=== PATIENT | female | born 1985 | race Caucasian/White ===

== ENCOUNTER 2019-10-07 22:14 | Inpatient (IN) | payer SELFPAY ==
[~2019-10-07] VITALS: Ht 167.6 cm; Wt 76.7 kg
[2019-10-07 22:30] VITALS: BP_SYST 119
[2019-10-08] MEDS ORDERED: NACL 0.9% 1,000 ML IV ONE (00:15)
[2019-10-08] MEDS ORDERED: ASPIRIN 325 MG TABLET PO ONE (00:15)
[2019-10-08] MEDS ORDERED: NITROGLYCERIN 0.4 MG TAB.SUBL SL ONE (00:15)
[2019-10-08 00:21] LABS: BILIRUBIN,URINE NEGATIVE (NEGATIVE); BLOOD, URINE NEGATIVE (NEGATIVE); CLARITY/URINE CLEAR (CLEAR); COLOR,URINE YELLOW (YELLOW); GLUCOSE,URINE NEGATIVE (NEGATIVE); KETONES,URINE NEGATIVE (NEGATIVE); LEUKOCYTE ESTERASE ,URINE 2+ (NEGATIVE); NITRITE, URINE NEGATIVE (NEGATIVE); PROTEIN URINE NEGATIVE (NEGATIVE); UROBILINOGEN,URINE 0.2 (0.2-1.0)
[2019-10-08 00:25] LABS: RBC,URINE 0-3 /HPF (0-3)
[2019-10-08 00:26] LABS: BACTERIA,URINE MODERATE /HPF (None Seen)
[2019-10-08] MEDS ORDERED: cefTRIAXone 1 GM in D5W 50 ML IV ONE (01:15)
[2019-10-08] MEDS ORDERED: MORPHINE 2 MG/ML INJ. SYRINGE IVP ONE (01:15)
[2019-10-08 01:25] LABS: BASOPHILS % (AUTO) 0.2 % (0.0-2.0); CALCIUM 8.6 mg/dL (8.4-11.0); CREATININE 0.78 mg/dL (0.55-1.30); EOSINOPHILS % (AUTO) 0.1 % (0.0-4.0); HEMATOCRIT 36.9 % (36-48); HEMOGLOBIN 12.9 g/dL (12.0-16.0); LYMPHOCYTES # (AUTO) 1.9 K/uL (1.0-5.5); LYMPHOCYTES % (AUTO) 8.8 % (20.5-51.5); MEAN CORPUSCULAR HEMOGLOBIN 33 pg (27-31); MEAN CORPUSCULAR HGB CONC 35 % (32-36); MEAN CORPUSCULAR VOLUME 95 fL (79.0-98.0); MONOCYTES # (AUTO) 1.2 K/uL (0.0-1.0); MONOCYTES % (AUTO) 5.6 % (1.7-9.3); NEUTROPHILS # (AUTO) 18.8 K/uL (1.8-7.7); NEUTROPHILS % (AUTO) 85.3 % (40.0-70.0); PLATELET COUNT (AUTO) 286 K/uL (130-430); POTASSIUM 3.6 mmol/L (3.5-5.1); PROTHROMBIN TIME 9.9 SECS (9.5-12.5); RED CELL DISTRIBUTION WIDTH 12.8 % (9.0-15.0)
[2019-10-08 01:29] LABS: ALBUMIN 3.4 g/dL (3.4-4.8); TOTAL BILIRUBIN 0.4 mg/dL (0.0-1.0)
[2019-10-08] MEDS ORDERED: cefTRIAXone 1 GM VIAL ONE (01:29)
[2019-10-08] MEDS ORDERED: ONDANSETRON HCL 4 MG/2 ML VIAL IVP PRN (04:00)
[2019-10-08] MEDS ORDERED: ACETAMINOPHEN 325 MG TABLET PO PRN (04:00)
[2019-10-08] MEDS ORDERED: KETOROLAC TROMETHAMINE 15 MG VIAL IVP PRN (04:15)
[2019-10-08 05:00] VITALS: BP_SYST 124
[2019-10-08 05:10] LABS: BARBITURATE, URINE NEGATIVE (NEG <=200); BENZODIAZEPINE, URINE NEGATIVE (NEG <=150); METHAMPHETAMINES SCREEN,URINE NEGATIVE (NEG <=500); OPIATE, URINE NEGATIVE (NEG <=100); PHENCYCLIDINE SCREEN,URINE NEGATIVE (NEG <=25); UR TRICYCLIC ANTIDEPRESSANTS NEGATIVE (NEG <=300); URINE AMPHETAMINE NEGATIVE (NEG <=500); URINE METHADONE NEGATIVE (NEG <=200); URINE OXYCODONE SCREEN NEGATIVE (NEG <=100); URINE PROPOXYPHENE SCREEN NEGATIVE (NEG <=300)
[2019-10-08 05:11] LABS: CANNABINOID, URINE POSITIVE (NEG <=50); COCAINE, URINE POSITIVE (NEG <=150)
[2019-10-08] MEDS ORDERED: FLU VACC QS2019-20 36MOS UP/PF 60 MCG/0.5 ML SYRINGE I.M. PRN (07:00)
[2019-10-08 07:45] VITALS: BP_SYST 131
[2019-10-08] MEDS: cefTRIAXone 1 GM in D5W 50 ML IV SCH (11:48)
[2019-10-08 11:53] VITALS: BP_SYST 138
[2019-10-08] MEDS: NACL 0.9% 1,000 ML IV SCH (13:16)
[2019-10-08] MEDS: metroNIDAZOLE 500 mg/NS 100 ML IV SCH ×2 (13:16→21:50)
[2019-10-08 16:01] VITALS: BP_SYST 143
[2019-10-08 20:00] VITALS: BP_SYST 133
[2019-10-09] VITALS: BP_SYST 125
[2019-10-09] MEDS: NACL 0.9% 1,000 ML IV SCH ×3 (00:23→08:50)
[2019-10-09] MEDS: metroNIDAZOLE 500 mg/NS 100 ML IV SCH (05:49)
[2019-10-09 06:29] LABS: BASOPHILS % (AUTO) 0.4 % (0.0-2.0); EOSINOPHILS # (AUTO) 0.1 K/uL (0.0-0.4); EOSINOPHILS % (AUTO) 1.4 % (0.0-4.0); HEMATOCRIT 33.1 % (36-48); HEMOGLOBIN 11.5 g/dL (12.0-16.0); LYMPHOCYTES # (AUTO) 2.1 K/uL (1.0-5.5); LYMPHOCYTES % (AUTO) 23.7 % (20.5-51.5); MEAN CORPUSCULAR HEMOGLOBIN 33 pg (27-31); MEAN CORPUSCULAR HGB CONC 35 % (32-36); MEAN CORPUSCULAR VOLUME 95 fL (79.0-98.0); MONOCYTES # (AUTO) 0.9 K/uL (0.0-1.0); NEUTROPHILS # (AUTO) 5.7 K/uL (1.8-7.7); NEUTROPHILS % (AUTO) 64.5 % (40.0-70.0); PLATELET COUNT (AUTO) 256 K/uL (130-430); RED BLOOD CELL COUNT(AUTO) 3.47 MIL/uL (4.2-6.2); RED CELL DISTRIBUTION WIDTH 12.7 % (9.0-15.0); WHITE BLOOD COUNT (AUTO) 8.9 K/uL (4.8-10.8)
[2019-10-09 06:47] LABS: ALBUMIN 2.7 g/dL (3.4-4.8); CALCIUM 7.9 mg/dL (8.4-11.0); CREATININE 0.6 mg/dL (0.55-1.30); POTASSIUM 3.7 mmol/L (3.5-5.1); TOTAL BILIRUBIN 0.2 mg/dL (0.0-1.0)
[2019-10-09 07:50] VITALS: BP_SYST 121
[2019-10-09] MEDS ORDERED: CEPH250C PO (10:32)
[2019-10-09] MEDS: cefTRIAXone 1 GM in D5W 50 ML IV SCH (11:05)
[2019-10-09 12:34] VITALS: BP_SYST 125
[2019-10-09 13:28] VITALS: BP_SYST 125
[2019-10-09 23:06] LABS: NEISSERIA GONORRHOEAE NAA Negative (Negative)
[2019-10-11 17:00] LABS: CHLAMYDIA TRACHOMATIS NAA Positive (Negative)
== END 2019-10-09 14:01 | disposition home or self-care (01) | DRG 872 ==
LOC: SED 22:14 → STU 10-08 03:54
PROVIDERS: ADMIT Internal Medicine; ATTEND Internal Medicine
DX: A41.9 Sepsis, unspecified organism (principal); N39.0 Urinary tract infection, site not specified; F41.9 Anxiety disorder, unspecified; F19.10 Other psychoactive substance abuse, uncomplicated; Z79.899 Other long term (current) drug therapy
CPT/HCPCS: 36415; 70450-TC; 71045; 73030; 80053; 80307; 81000-TC; 82550-TC; 83605; 83880; 84484; 84703; 85025; 85379; 85610-TC; 85651-TC; 87040-TC; 87086; 87186-TC; 87491; 87591; 93005; G0378; J0696; J1885; J1956; J2270; J3490; J7030; J7060

== ENCOUNTER 2019-10-10 15:37 | Inpatient (IN) | payer SELFPAY ==
[~2019-10-10] VITALS: Ht 167.6 cm; Wt 91.6 kg
[~2019-10-10 15:37] MED LIST: CEPH250C PO
[2019-10-10 16:24] VITALS: BP_SYST 146
[2019-10-10] MEDS ORDERED: cefTRIAXone 1 GM in D5W 50 ML IV ONE (17:00)
[2019-10-10 17:37] LABS: BASOPHILS % (AUTO) 0.5 % (0.0-2.0); EOSINOPHILS # (AUTO) 0.2 K/uL (0.0-0.4); HEMATOCRIT 37.1 % (36-48); HEMOGLOBIN 12.9 g/dL (12.0-16.0); LYMPHOCYTES # (AUTO) 1.8 K/uL (1.0-5.5); LYMPHOCYTES % (AUTO) 23.1 % (20.5-51.5); MEAN CORPUSCULAR HEMOGLOBIN 33 pg (27-31); MEAN CORPUSCULAR HGB CONC 35 % (32-36); MEAN CORPUSCULAR VOLUME 95 fL (79.0-98.0); MONOCYTES # (AUTO) 0.5 K/uL (0.0-1.0); NEUTROPHILS # (AUTO) 5.2 K/uL (1.8-7.7); NEUTROPHILS % (AUTO) 68.4 % (40.0-70.0); PLATELET COUNT (AUTO) 355 K/uL (130-430); RED BLOOD CELL COUNT(AUTO) 3.92 MIL/uL (4.2-6.2); RED CELL DISTRIBUTION WIDTH 12.8 % (9.0-15.0); WHITE BLOOD COUNT (AUTO) 7.7 K/uL (4.8-10.8)
[2019-10-10] MEDS ORDERED: cefTRIAXone 1 GM VIAL ONE (17:37)
[2019-10-10 17:43] LABS: CALCIUM 8.7 mg/dL (8.4-11.0); CREATININE 1.03 mg/dL (0.55-1.30); POTASSIUM 3.8 mmol/L (3.5-5.1)
[2019-10-10 17:46] LABS: PROTHROMBIN TIME 9.8 SECS (9.5-12.5)
[2019-10-10 17:48] LABS: ALBUMIN 3.3 g/dL (3.4-4.8); TOTAL BILIRUBIN 0.1 mg/dL (0.0-1.0)
[2019-10-10 18:57] VITALS: BP_SYST 137
[2019-10-10] MEDS ORDERED: TEMAZEPAM 15 MG CAPSULE PO PRN (20:00)
[2019-10-10] MEDS ORDERED: ACETAMINOPHEN 325 MG TABLET PO PRN (20:00)
[2019-10-11 00:38] VITALS: BP_SYST 138
[2019-10-11] MEDS ORDERED: cefTRIAXone 1 GM in D5W 50 ML IV SCH ×2 (09:00→17:00)
[2019-10-11 10:34] VITALS: BP_SYST 125
[2019-10-11] MEDS: CHOLECALCIFEROL (VITAMIN D3) 2,000 UNIT TABLET PO SCH (10:37)
[2019-10-11] MEDS: MULTIVITS,CA,MINERALS/IRON/FA 1 TABLET PO SCH (10:37)
[2019-10-11 11:28] VITALS: BP_SYST 134
[2019-10-11 15:07] VITALS: BP_SYST 124
[2019-10-11 20:00] VITALS: BP_SYST 127
[2019-10-11] MEDS: DOXYCYCLINE HYCLATE 100 MG CAPSULE PO SCH (20:56)
[2019-10-11] MEDS: cefTRIAXone 1 GM in D5W 50 ML IV SCH (21:42)
[2019-10-11] MEDS ORDERED: cefTRIAXone 1 GM VIAL ONE (21:44)
[2019-10-12] VITALS: BP_SYST 122
[2019-10-12 08:51] VITALS: BP_SYST 131
[2019-10-12] MEDS: MULTIVITS,CA,MINERALS/IRON/FA 1 TABLET PO SCH (08:54)
[2019-10-12] MEDS: DOXYCYCLINE HYCLATE 100 MG CAPSULE PO SCH (08:54)
[2019-10-12] MEDS: CHOLECALCIFEROL (VITAMIN D3) 2,000 UNIT TABLET PO SCH (08:54)
[2019-10-12] MEDS: cefTRIAXone 1 GM in D5W 50 ML IV SCH (08:54)
[2019-10-12 12:52] VITALS: BP_SYST 135
[2019-10-12] MEDS ORDERED: LEVOFLOXACIN 500 MG TABLET PO ONE (14:45)
[2019-10-12] MEDS ORDERED: LEVO500T89 PO (14:47)
[2019-10-12 15:59] VITALS: BP_SYST 135
[2019-10-12] MEDS ORDERED: LACT1CAP71 PO (16:04)
[2019-10-12] MEDS ORDERED: MULT-1189 PO (16:06)
== END 2019-10-12 16:40 | disposition home or self-care (01) | DRG 872 ==
LOC: SED 15:37 → SMU 17:33
PROVIDERS: ADMIT Internal Medicine; ATTEND Internal Medicine
DX: A02.1 Salmonella sepsis (principal); N12 Tubulo-interstitial nephritis, not specified as acute or chronic; B96.20 Unspecified Escherichia coli [E. coli] as the cause of diseases classified elsewhere; F41.9 Anxiety disorder, unspecified; E66.9 Obesity, unspecified; Z68.32 Body mass index [BMI] 32.0-32.9, adult; Z79.899 Other long term (current) drug therapy
CPT/HCPCS: 36415; 71045; 76770; 80053; 83605; 85025; 85610-TC; 85730-TC; 87040-TC; 87081; 87086; 99284; J0696; J7060

== ENCOUNTER 2022-07-25 12:47 | Emergency (ER) | payer MEDICAID ==
[~2022-07-25] VITALS: Ht 167.6 cm; Wt 92.1 kg
[~2022-07-25 12:47] MED LIST changes: -CEPH250C PO; +LACT1CAP71 PO; +LEVO-62 PO; +MULT-1189 PO
[2022-07-25 13:17] VITALS: BP_SYST 122
[2022-07-25 13:57] LABS: BASOPHILS % (AUTO) 0.5 % (0.0-2.0); EOSINOPHILS # (AUTO) 0.1 K/uL (0.0-0.4); EOSINOPHILS % (AUTO) 1.3 % (0.0-4.0); HEMATOCRIT 38.2 % (36-48); HEMOGLOBIN 13.2 g/dL (12.0-16.0); LYMPHOCYTES # (AUTO) 2.1 K/uL (1.0-5.5); LYMPHOCYTES % (AUTO) 21.2 % (20.5-51.5); MEAN CORPUSCULAR HEMOGLOBIN 31 pg (27-31); MEAN CORPUSCULAR HGB CONC 35 % (32-36); MEAN CORPUSCULAR VOLUME 90 fL (79.0-98.0); MONOCYTES # (AUTO) 0.6 K/uL (0.0-1.0); NEUTROPHILS # (AUTO) 7.2 K/uL (1.8-7.7); PLATELET COUNT (AUTO) 393 K/uL (130-430); RED BLOOD CELL COUNT(AUTO) 4.23 MIL/uL (4.2-6.2); RED CELL DISTRIBUTION WIDTH 12.6 % (9.0-15.0); WHITE BLOOD COUNT (AUTO) 10.1 K/uL (4.8-10.8)
[2022-07-25 14:09] LABS: ANION GAP 5 (5-15); CALCIUM 8.9 mg/dL (8.4-11.0); CHLORIDE 104 mmol/L (98-107); CREATININE 0.73 mg/dL (0.55-1.30); GLUCOSE 105 mg/dL (70-99); POTASSIUM 4.2 mmol/L (3.5-5.1); UREA NITROGEN, BLOOD 23 mg/dL (8-21)
[2022-07-25 14:18] LABS: ALANINE AMINOTRANSFERASE 40 U/L (12-78); ALBUMIN 3.5 g/dL (3.4-4.8); ASPARTATE AMINOTRANSFERASE 19 U/L (10-37); TOTAL BILIRUBIN 0.3 mg/dL (0.0-1.0)
[2022-07-25 14:19] LABS: GFR AFRICAN AMERICAN 115 mL/min (>90)
[2022-07-25] MEDS ORDERED: KETOROLAC TROMETHAMINE 60 MG/2 ML VIAL IM ONE (15:15)
[2022-07-25 17:28] VITALS: BP_SYST 127
== END 2022-07-25 17:28 | disposition home or self-care (01) ==
LOC: SED 12:47
DX: R07.9 Chest pain, unspecified (principal); M25.512 Pain in left shoulder; Z79.899 Other long term (current) drug therapy
CPT/HCPCS: 99285; 71045; 80053; 84702; 83880; 85025; 85379; 84484; 36415; 93005; 96372; J1885; J7040

== ENCOUNTER 2023-07-16 19:46 | Emergency (ER) | payer SELFPAY ==
[~2023-07-16] VITALS: Ht 167.6 cm; Wt 95.3 kg
[2023-07-16 20:03] VITALS: BP_SYST 134; PULSE 88; RESP 16; TEMP 97.9; O2SAT 98
[2023-07-16] MEDS ORDERED: KETOROLAC TROMETHAMINE 60 MG/2 ML VIAL IM ONE (22:30)
[2023-07-16] MEDS ORDERED: TRAM50TA2 PO ×2 (22:33→23:21)
[2023-07-16] MEDS ORDERED: METH-634 PO ×2 (22:33→23:21)
[2023-07-16 23:10] VITALS: BP_SYST 145; PULSE 88; RESP 16; TEMP 97.9; O2SAT 98
== END 2023-07-16 23:10 | disposition home or self-care (01) ==
LOC: SED 19:46
DX: M62.838 Other muscle spasm (principal); M25.511 Pain in right shoulder; R51.9 Headache, unspecified; R20.2 Paresthesia of skin; Z79.899 Other long term (current) drug therapy
CPT/HCPCS: 99283; J1885

== ENCOUNTER 2024-01-22 15:14 | Emergency (ER) | payer OTHER ==
[~2024-01-22] VITALS: Ht 167.6 cm; Wt 95.3 kg
[~2024-01-22 15:14] MED LIST changes: +METH-634 PO; +TRAM50TA2 PO
[2024-01-22 15:32] VITALS: BP_SYST 153; PULSE 100; RESP 18; TEMP 97.8; O2SAT 96
[2024-01-22] MEDS: KETOROLAC TROMETHAMINE 30 MG VIAL IM ONE (17:48)
[2024-01-22] MEDS ORDERED: NAPR-690 PO (17:50)
[2024-01-22] MEDS ORDERED: CEPH-548 PO (17:50)
[2024-01-22 18:11] VITALS: BP_SYST 132; PULSE 86; RESP 16; TEMP 97.8; O2SAT 96
== END 2024-01-22 18:11 | disposition home or self-care (01) ==
LOC: SED 15:14
DX: H60.13 Cellulitis of external ear, bilateral (principal); R51.9 Headache, unspecified; M54.2 Cervicalgia; Z79.899 Other long term (current) drug therapy
CPT/HCPCS: 99283; 96372; J1885

== ENCOUNTER 2024-02-28 00:01 | Emergency (ER) | payer OTHER ==
[~2024-02-28] VITALS: Ht 167.6 cm; Wt 94.8 kg
[~2024-02-28 00:01] MED LIST changes: +CEPH-548 PO; +NAPR-690 PO
[2024-02-28 00:33] VITALS: BP_SYST 142; PULSE 109; RESP 18; TEMP 98; O2SAT 98
[2024-02-28] MEDS ORDERED: CLAR-61 PO (02:53)
== END 2024-02-28 02:08 | disposition home or self-care (01) ==
LOC: SED 00:01
DX: J20.9 Acute bronchitis, unspecified (principal); R05.9 Cough, unspecified; R09.89 Other specified symptoms and signs involving the circulatory and respiratory systems; R07.89 Other chest pain; Z79.899 Other long term (current) drug therapy
CPT/HCPCS: 71045; 99283

== ENCOUNTER 2024-09-25 10:05 | Emergency (ER) | payer OTHER ==
[~2024-09-25] VITALS: Ht 167.6 cm; Wt 90.7 kg
[~2024-09-25 10:05] MED LIST changes: +CLAR-61 PO
[2024-09-25 10:46] VITALS: BP_SYST 139; PULSE 92; RESP 18; TEMP 98.3; O2SAT 96
[2024-09-25 11:51] LABS: INFLUENZA TYPE A NEGATIVE (NEGATIVE); INFLUENZA TYPE B NEGATIVE (NEGATIVE)
[2024-09-25] MEDS ORDERED: ALBMDI INH (11:58)
[2024-09-25] MEDS ORDERED: PRED20TA PO (12:00)
[2024-09-25 12:05] VITALS: BP_SYST 139; PULSE 92; RESP 18; TEMP 98.3; O2SAT 96
== END 2024-09-25 12:05 | disposition home or self-care (01) ==
LOC: SED 10:05
DX: J40 Bronchitis, not specified as acute or chronic (principal); F41.9 Anxiety disorder, unspecified; Z20.822 Contact with and (suspected) exposure to COVID-19; Z79.899 Other long term (current) drug therapy; Z79.2 Long term (current) use of antibiotics
CPT/HCPCS: 36415; 71045; 99284